=== PATIENT | female | born 1955 | race African-American/Black ===

== ENCOUNTER 2020-04-29 09:18 | Emergency (ER) | payer BC, OTHER ==
[2020-04-30 14:52] LABS: SARS-CoV-2 MS2 Positive; SARS-CoV-2 N Gene Positive; SARS-CoV-2 S Gene Positive; SARS-CoV-2 orf1ab Positive
== END 2020-04-29 12:01 | disposition expired ==
LOC: NAV ERS 09:18
DX: U07.1 COVID-19 (principal); I46.9 Cardiac arrest, cause unspecified
CPT/HCPCS: 31500; 36680; 87635; 92950; 96372; U0003